=== PATIENT | female | born 1990 | race Caucasian/White ===

== ENCOUNTER 2017-03-04 21:01 | Emergency (ER) | payer MEDICARE ==
[2017-03-04] MEDS ORDERED: Vistaril 50 MG/ML IM ONE ×2 (21:40→21:42)
[2017-03-04] MEDS ORDERED: TYLENOL 325 MG PO ONE (21:40)
[2017-03-04] MEDS ORDERED: TYLENOL 325 MG ONE (21:42)
--- NOTE | 2017-03-04 21:44 | ERPHSYRPT ---
- History of Present Illness Time Seen by Provider: 03/04/17 21:10 Source: patient Patient Subjective Stated Complaint: pt states this afternoon she began to have a headache, reports she has bad anxiety and thought it was related to that. states that her headache increased tonight and she also had shoulder pain and a relative checked her BP and found it to be 200/100. Triage Nursing Assessment: pt is aox3, ambulatory to cot with no difficulties, pupils perrl, radial pulses strong and equal, resps are easy and non labored, cap refill < 3 secs. Physician History: CC: headache and high blood pressure Hx: 26 y/o patient with hx of HTN on diovan, anxiety and schizophrenia and multi personalities. She has had some headache today. She noted her BP was very elevated so a family member checked it and told her to come to the hospital. No N/T/W. No chest/abd/back pain. No fever or chills. No injury. Timing/Duration: today Severity: mild Allergies/Adverse Reactions: Penicillins Allergy (Verified 03/04/17 21:15) Home Medications: Alprazolam 0.25 mg [xanAX 0.25 MG] 0.25 mg PO TID 03/04/17 [History] Duloxetine HCl 30 mg [Cymbalta 30 MG Capsule] 90 mg PO DAILY 03/04/17 [ History] Paliperidone [Invega] 12 mg PO DAILY 03/04/17 [History] Prazosin HCl 2 mg PO HS 03/04/17 [History] Valsartan/Hydrochlorothiazide [Diovan Hct 160-12.5 mg Tab] 1 each PO DAILY 03/04 [History] Hx Tetanus, Diphtheria Vaccination/Date Given: No Hx Influenza Vaccination/Date Given: No Hx Pneumococcal Vaccination/Date Given: No Immunizations Up to Date: Yes - Review of Systems Constitutional: No Fever, No Chills Eyes: No Vision Changes Ears, Nose, & Throat: No Symptoms Respiratory: No Cough, No Dyspnea Cardiac: No Chest Pain Abdominal/Gastrointestinal: No Abdominal Pain, No Nausea, No Vomiting, No Diarrhea Musculoskeletal: No Back Pain, No Neck Pain, No Fall, No Injury Skin: No Rash Neurological: Headache, No Focal Weakness, No Parasthesia All Other Systems: Reviewed and Negative - Past Medical History Pertinent Past Medical History: Yes Neurological History: Migraines Cardiac History: Hypertension Respiratory History: Asthma Endocrine Medical History: No Pertinent History Musculoskeletal History: No Pertinent History Psycho-Social History: Anxiety, Depression Other Medical History: multiple personality disorder, schizophrenia - Past Surgical History Past Surgical History: Yes Musculoskeletal: Other Other Surgical History: biopsy of shoulder tumor-benign - Social History Smoking Status: Current every day smoker How long have you smoked: 13 Drug Use: none Patient Lives Alone: No (here with family) - Female History Hx Last Menstrual Period: 02/25/17 - Nursing Vital Signs Nursing Vital Signs: Initial Vital Signs Temperature 97.3 F 03/04/17 21:06 Pulse Rate 90 03/04/17 21:06 Respiratory Rate 20 03/04/17 21:06 Blood Pressure 134/82 03/04/17 21:06 O2 Sat by Pulse Oximetry 98 03/04/17 21:06 Pain Scale Pain Intensity 0 - Physical Exam General Appearance: alert Eye Exam: PERRL/EOMI Ears, Nose, Throat Exam: normal ENT inspection, moist mucous membranes Neck Exam: normal inspection, non-tender, supple Respiratory Exam: normal breath sounds, lungs clear Cardiovascular Exam: regular rate/rhythm Gastrointestinal/Abdomen Exam: soft, No tenderness, No distention Back Exam: normal inspection, normal range of motion Extremity Exam: normal inspection, normal range of motion Neurologic Exam: alert, oriented x 3, cooperative, sensation nml, No motor deficits Skin Exam: warm, dry, No rash SpO2 Interpretation: normal SpO2: 98 Oxygen Delivery: Room Air - Course Nursing assessment & vital signs reviewed: Yes Ordered Tests: Active Orders 24 hr Category Date Time Status Clean Catch Urine Specimen STAT Care 03/04/17 21:34 Active HCG,QUALITATIVE URINE Stat Lab 03/04/17 21:30 Completed UA W/RFX UR CULTURE Stat Lab 03/04/17 21:30 Completed Urine Triage Profile Stat Lab 03/04/17 21:30 Completed Medication Summary Discontinued Medications Generic Name Dose Route Start Last Admin Trade Name Freq PRN Reason Stop Dose Admin Acetaminophen 650 mg 03/04/17 21:40 03/04/17 21:47 Tylenol 325 Mg PO 03/04/17 21:41 650 mg STAT ONE Administration Acetaminophen Confirm 03/04/17 21:42 Tylenol 325 Mg Administered 03/04/17 21:43 Dose 650 mg .ROUTE .STK-MED ONE Hydroxyzine HCl 50 mg 03/04/17 21:40 03/04/17 21:47 Vistaril 50 Mg/Ml IM 03/04/17 21:41 50 mg STAT ONE Administration Hydroxyzine HCl Confirm 03/04/17 21:42 Vistaril 50 Mg/Ml Administered 03/04/17 21:43 Dose 50 mg IM .STK-MED ONE Lab/Rad Data: Laboratory Results 03/04/17 03/04/17 03/04/17 Range/Units 21:30 21:30 21:30 Ur Collection Type CLEAN CATCH Urine Color YELLOW (YELLOW) Urine Appearance CLEAR (CLEAR) Urine pH 6.0 (5-6) Ur Specific [place] 1.010 (1.005-1.025) Urine Protein NEGATIVE (Negative) Urine Ketones NEGATIVE (NEGATIVE) Urine Blood NEGATIVE (0-5) Ted/ul Urine Nitrite NEGATIVE (NEGATIVE) Urine Bilirubin NEGATIVE (NEGATIVE) Urine Urobilinogen NORMAL (0-1) mg/dL Ur Leukocyte Esterase NEGATIVE (NEGATIVE) Urine Culture Reflexed NO (NO) Urine Glucose NEGATIVE (NEGATIVE) mg/dL Urine HCG, Qual NEGATIVE (Negative) Urine Opiates Level NEG. (NEGATIVE) Ur Methadone NEG. (NEGATIVE) Urine Barbiturates NEG. (NEGATIVE) Ur Phencyclidine (PCP) NEG. (NEGATIVE) Urine Amphetamine NEG. (NEGATIVE) U Benzodiazepine Level NEG. (NEGATIVE) Urine Cocaine NEG. (NEGATIVE) Urine Marijuana (THC) POS. (NEGATIVE) Specimen Received 03/04/172129 - Progress Progress Note: 03/04/17 22:27 She is stable. All electric heat and no CO or gas at home. She was given vistrail and APAP. Labs reviewed. Will release to follow up with KATHY Gruber. BP here has been excellent. Counseled pt/family regarding: lab results, diagnosis, need for follow-up - Departure Time of Disposition: 22:27 Departure Disposition: Home Clinical Impression: Headache, Hypertension Condition: Stable Critical Care Time: No Referrals: GISELE GRUBER [Primary Care Provider] - Instructions: Headache, High Blood Pressure Additional Instructions: No driving tonite and stay with family. Return for problems or concerns. Follow up with KATHY Gruber next week.
[2017-03-04 22:09] LABS: Collection Type CLEAN CATCH
[2017-03-04 22:10] LABS: ADD URINE CULTURE? NO (NO); Bilirubin NEGATIVE (NEGATIVE); Blood NEGATIVE Ery/ul (0-5); COMPLETE URINE MICROSCOPIC? NO; Glucose NEGATIVE (NEGATIVE); Leukocyte Esterase NEGATIVE (NEGATIVE)
[2017-03-04 22:35] VITALS: BP 132/75; PULSE 84; O2SAT 97
== END 2017-03-04 22:35 | disposition home or self-care (01) ==
LOC: ED 21:01
DX: R51 Headache (principal); I10 Essential (primary) hypertension
CPT/HCPCS: 80307; 81002; 84703; 96372; 99283; J3410; A9270-GY

== ENCOUNTER 2018-12-12 22:04 | Emergency (ER) | payer MEDICARE ==
--- NOTE | 2018-12-12 22:18 | ERPHSYRPT ---
- History of Present Illness Time Seen by Provider: 12/12/18 22:18 Source: patient Exam Limitations: no limitations Physician History: 28 y/o obese white female presents with right lower back pain and sciatica shooting down right buttock and back of right leg. no acute injury. Timing/Duration: day(s) (2), worse Severity: moderate Modifying Factors: Improves With: movement (worsens) Associated Symptoms: No nausea, No vomiting, No abdominal pain, No shortness of breath, No chest pain Allergies/Adverse Reactions: Penicillins Allergy (Verified 12/12/18 22:21) Home Medications: Alprazolam 0.25 mg [xanAX 0.25 MG] 0.25 mg PO TID 03/04/17 [History] Duloxetine HCl 30 mg [Cymbalta 30 MG Capsule] 90 mg PO DAILY 03/04/17 [ History] Paliperidone [Invega] 12 mg PO DAILY 03/04/17 [History] Prazosin HCl 2 mg PO HS 03/04/17 [History] Valsartan [Diovan] 160 mg PO DAILY 12/12/18 [History] Hx Tetanus, Diphtheria Vaccination/Date Given: No Hx Influenza Vaccination/Date Given: No Hx Pneumococcal Vaccination/Date Given: No - Review of Systems Constitutional: No Symptoms Eyes: No Symptoms Ears, Nose, & Throat: No Symptoms Respiratory: No Symptoms Cardiac: No Symptoms Abdominal/Gastrointestinal: No Symptoms Genitourinary Symptoms: No Symptoms Musculoskeletal: Back Pain, No Injury Skin: No Symptoms Neurological: No Symptoms Psychological: No Symptoms Endocrine: No Symptoms Hematologic/Lymphatic: No Symptoms Immunological/Allergic: No Symptoms All Other Systems: Reviewed and Negative - Past Medical History Pertinent Past Medical History: Yes Neurological History: Migraines Cardiac History: Hypertension Respiratory History: Asthma Endocrine Medical History: No Pertinent History Musculoskeletal History: No Pertinent History Psycho-Social History: Anxiety, Depression Other Medical History: multiple personality disorder, schizophrenia - Past Surgical History Past Surgical History: Yes Musculoskeletal: Other Other Surgical History: biopsy of shoulder tumor-benign - Social History Smoking Status: Current every day smoker How long have you smoked: 13 Drug Use: none Patient Lives Alone: No (here with family) - Nursing Vital Signs Nursing Vital Signs: Initial Vital Signs Temperature 98.0 F 12/12/18 22:10 Pulse Rate 96 H 12/12/18 22:10 Respiratory Rate 20 12/12/18 22:10 Blood Pressure 150/93 12/12/18 22:10 O2 Sat by Pulse Oximetry 97 12/12/18 22:10 Pain Scale Pain Intensity [Lower Back] 10 Pain Intensity 10 - Physical Exam General Appearance: no apparent distress, alert, anxiety Eye Exam: PERRL/EOMI, eyes nml inspection Ears, Nose, Throat Exam: normal ENT inspection, moist mucous membranes Neck Exam: normal inspection, non-tender, supple, full range of motion Respiratory Exam: normal breath sounds, lungs clear, airway intact, No chest tenderness, No respiratory distress Cardiovascular Exam: regular rate/rhythm, normal heart sounds, normal peripheral pulses Gastrointestinal/Abdomen Exam: soft, normal bowel sounds, No tenderness Pelvic Exam: not done Rectal Exam: not done Extremity Exam: normal inspection, normal range of motion, pelvis stable Neurologic Exam: alert, oriented x 3, 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, 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 Skin Exam: normal color, warm, dry Lymphatic Exam: No adenopathy SpO2 Interpretation: normal O2 Delivery: Room Air - Course Nursing assessment & vital signs reviewed: Yes Ordered Tests: Medication Summary Generic Name Dose Route Start Last Admin Trade Name Freq PRN Reason Stop Dose Admin Cyclobenzaprine HCl 10 mg 12/12/18 22:27 Cyclobenzaprine 10 Mg PO 12/12/18 22:28 STAT ONE Oxycodone/Acetaminophen 1 tab 12/12/18 22:27 Percocet Tablet 5/325mg PO 12/12/18 22:28 STAT STA Prednisone 20 mg 12/13/18 22:27 Deltasone 20 Mg PO 12/13/18 22:28 STAT ONE - Progress Progress: unchanged Counseled pt/family regarding: diagnosis, need for follow-up - Departure Departure Disposition: Home Clinical Impression: Sciatica Condition: Stable Critical Care Time: No Referrals: GISELE MEI [Primary Care Provider] - Additional Instructions: follow up with primary doctor for further management Prescriptions: Carisoprodol 350 mg [Soma 350 mg] 350 mg PO Q8H PRN PRN #10 tablet PRN Reason: Muscle Spasms Prednisone 10 mg [Deltasone 10 mg] 10 mg PO TID #12 tablet
[2018-12-12] MEDS ORDERED: Cyclobenzaprine 10 MG PO ONE (22:27)
[2018-12-12] MEDS ORDERED: PERCOCET TABLET 5/325MG PO STA (22:27)
[2018-12-12] MEDS ORDERED: PERCOCET TABLET 5/325MG ONE (22:35)
[2018-12-12] MEDS ORDERED: Cyclobenzaprine 10 MG ONE (22:36)
[2018-12-12] MEDS ORDERED: DELTASONE 20 MG ONE (22:36)
[2018-12-12 22:52] VITALS: BP 148/87; PULSE 94; O2SAT 98
[2018-12-13] MEDS ORDERED: DELTASONE 20 MG PO ONE (22:27)
== END 2018-12-12 22:50 | disposition home or self-care (01) ==
LOC: ED 22:04
DX: M54.31 Sciatica, right side (principal)
CPT/HCPCS: 99283; A9270-GY

== ENCOUNTER 2020-09-22 23:52 | Emergency (ER) | payer MEDICARE ==
[2020-09-23] MEDS ORDERED: NORCO 5/325 MG PO ONE (00:08)
[2020-09-23] MEDS ORDERED: NORCO 5/325 MG ONE (00:17)
--- NOTE | 2020-09-23 00:36 | ERPHSYRPT ---
- History of Present Illness Time Seen by Provider: 09/22/20 23:54 Source: patient Exam Limitations: no limitations Patient Subjective Stated Complaint: Patient states she was chasing a toddler and tripped over rocking horse. Patient states she lost consciousness for unkno wn amount of time. States she has a torn meniscus since february 2020 and thinks she tore it again. States nose has been bleeding for 2 hours and that R side of face is numb. Triage Nursing Assessment: Patient presents to ER. Patient is ambulatory but limping d/t injured knee. Patients nose is actively bleeding and has laceration on R side nose, bruising on L side of face. Physician History: 30 years old female presented in the ER with chief complaint of fall with injury around left orbit, left side of nose with epistaxis and left hip. Patient reports she tripped over something while chasing a toddler and hit her self against the edge of a chair with a positive loss of consciousness for 1 to 2- minute. She woke up with bleeding from left nose moderate amount, continuous until prior to arrival in the ER. She is having progressively increasing swelling around left forehead/orbit with feeling of numbness in that area and mild headache. Is complaining of dull aching to sharp pain in the nose which is more with palpation. No difficulty movements of eyeballs or visual disturbance. Denies any neck pain. She is complaining of left hip pain does have history of torn meniscus left knee but since fall she is having difficulty ambulation but was able to walk in the ER. No back pain. Up-to-date with tetanus. Occurred: last week, hours ago (2) Head Injury Location: frontal Method of Injury: fell Loss of Consciousness: prolonged (minutes) Associated Symptoms: headaches Allergies/Adverse Reactions: Penicillins Allergy (Verified 09/23/20 00:22) Home Medications: ALPRAZolam 0.25 MG [xanAX 0.25 MG] 0.25 mg PO TID 03/04/17 [History] Duloxetine HCl 30 mg [Cymbalta 30 MG Capsule] 90 mg PO DAILY 03/04/17 [History] Paliperidone [Invega] 12 mg PO DAILY 03/04/17 [History] Prazosin HCl 2 mg PO HS 03/04/17 [History] Valsartan [Diovan] 160 mg PO DAILY 12/12/18 [History] Hx Tetanus, Diphtheria Vaccination/Date Given: No Hx Influenza Vaccination/Date Given: No Hx Pneumococcal Vaccination/Date Given: No Travel Risk - International Travel Have you traveled outside of the country in past 3 weeks: No - Coronavirus Screening Are you exhibiting any of the following symptoms?: No Close contact with a COVID-19 positive Pt in past 14-21 Days: No - Vaccine Status Have you recieved a Covid-19 vaccination: No - Review of Systems Constitutional: No Symptoms Eyes: No Symptoms Ears, Nose, & Throat: Nose Pain, Nose Congestion, Epistaxis Respiratory: No Symptoms Cardiac: No Symptoms Abdominal/Gastrointestinal: No Symptoms Genitourinary Symptoms: No Symptoms Musculoskeletal: No Symptoms Skin: Rash, Skin Lesions Neurological: Headache Psychological: No Symptoms Endocrine: No Symptoms Hematologic/Lymphatic: No Symptoms Immunological/Allergic: No Symptoms - Past Medical History Pertinent Past Medical History: Yes Neurological History: Migraines Cardiac History: Hypertension Respiratory History: Asthma Endocrine Medical History: No Pertinent History Musculoskeletal History: No Pertinent History Psycho-Social History: Anxiety, Depression Other Medical History: multiple personality disorder, schizophrenia - Past Surgical History Past Surgical History: Yes Musculoskeletal: Other Other Surgical History: biopsy of shoulder tumor-benign - Social History Smoking Status: Current every day smoker How long have you smoked: 13 Exposure to second hand smoke: Yes Drug Use: none Patient Lives Alone: No (here with family) - Female History Hx Last Menstrual Period: 08/25/20 Hx Now: (unkn) - Nursing Vital Signs Nursing Vital Signs: Initial Vital Signs Temperature 97 F 09/22/20 23:58 Pulse Rate 100 H 09/22/20 23:58 Blood Pressure 127/67 09/22/20 23:58 Pain Scale Pain Intensity 9 - Ovando Coma Score Best Eye Response (Mariano): (4) open spontaneously Best Verbal Response (Mariano): (5) oriented Best Motor Response (Ovando): (6) obeys commands Mariano Total: 15 - Physical Exam General Appearance: no apparent distress, alert, anxiety Head Injury: contusions, raccoon eyes, swelling (Left periorbital area with hematoma and tenderness. No crepitus.), No active bleeding Eye Exam: bilateral eye: normal inspection, PERRL, EOMI ENT Exam: airway nml, clotted nasal blood (Left nares), other (Abrasion around left side of nose, around left orbit.) Neck Exam: supple, trachea midline, full range of motion, normal alignment, normal inspection Cardiovascular/Respiratory Exam: chest non-tender, normal breath sounds, regular rate/rhythm Gastrointestinal/Abdominal Exam: soft, non tender, no distention, no mass Back Exam: normal inspection, normal range of motion, CVA tenderness, vertebral tenderness, point tenderness (Left hip) Extremity Exam: normal inspection, pelvis stable, limited range of motion (Left hip) Mental Status Exam: alert, oriented x 3, 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 Exam: normal hearing, normal speech, PERRL Coordination/Gait Exam: normal finger to nose Motor/Sensory Exam: no motor deficit, no sensory deficit, no pronator drift, negative Babinski's sign Skin Exam: normal color SpO2 Interpretation: normal O2 Delivery: Room Air Ordered Tests: Active Orders 24 hr Category Date Time Status CERVICAL SPINE WO CONTRAST [CT] Stat Exams 09/23/20 01:18 Taken FACIAL BONES WO CONTRAST [CT] Stat Exams 09/23/20 01:14 Taken HEAD WITHOUT CONTRAST [CT] Stat Exams 09/23/20 01:10 Taken HIP UNI (2V) INCL PEL IF DONE Stat Exams 09/23/20 01:34 Taken HCG,QUALITATIVE URINE Stat Lab 09/23/20 00:49 Completed Medication Summary Discontinued Medications Generic Name Dose Route Start Last Admin Trade Name Flex PRN Reason Stop Dose Admin Hydrocodone Bitart/Acetaminophen 2 tab 09/23/20 00:08 09/23/20 00:18 [place] 5/325 Mg PO 09/23/20 00:09 2 tab STAT ONE Administration Hydrocodone Bitart/Acetaminophen Confirm 09/23/20 00:17 [place] 5/325 Mg Administered 09/23/20 00:18 Dose 2 tab .ROUTE .STK-MED ONE Lab/Rad Data: Laboratory Results 09/23/20 Range/Units 00:49 Urine HCG, Qual NEGATIVE (Negative) - Progress Progress: improved, pain not gone completely, re-examined Progress Note: 09/23/20 02:03 30 years old is evaluated for fall with injury around left orbit and left side of nose with epistaxis. Patient nasal bleed is improved on presentation. I have made her blow her nose and there is a small lesion, recommended nasal tampon/Rhino Rocket but patient refused as she is not bleeding. She understands the risk. She does have a left nasal fracture but no orbital floor fracture. No skull fracture or intracranial findings. She is able to ambulate but does have pain in the right hip, I did not appreciate any obvious fracture dislocation. I believe patient has hip contusion. Recommended Tylenol ibuprofen and outpatient follow-up. Discussed signs symptoms of worsening needing return to ER which she seems understanding. Discussed in detail about concussion and patient does have some adult to she is going to stay with for next 24 to 48 hours. Counseled pt/family regarding: lab results, diagnosis, need for follow-up, rad results, smoking cessation - Departure Departure Disposition: Home Clinical Impression: Epistaxis Concussion Qualifiers: Encounter type: initial encounter Loss of consciousness presence/duration: with LOC of 30 min or less Qualified Code(s): S06.0X1A - Concussion with loss of consciousness of 30 minutes or less, initial encounter Facial contusion Qualifiers: Encounter type: initial encounter Qualified Code(s): S00.83XA - Contusion of other part of head, initial encounter Nasal bone fracture Qualifiers: Encounter type: initial encounter Fracture type: closed Qualified Code(s): S02.2XXA - Fracture of nasal bones, initial encounter for closed fracture Contusion of hip, left Qualifiers: Encounter type: initial encounter Qualified Code(s): S70.02XA - Contusion of left hip, initial encounter Condition: Stable Critical Care Time: No Referrals: MARÍA PAINTER MD [Primary Care Provider] - (2 days for reevaluation.) AARON OHARA [NON-STAFF PHY W/O PRIVILEGES] - (1-2 days for reevaluation.) ORTHO - BENNY KOHLI NP [NON-STAFF PHY W/O PRIVILEGES] - Follow Up with PCP/3 days Instructions: Contusion (DC), Nose Fracture (DC), Nosebleeds (DC) Additional Instructions: Use Tylenol/ibuprofen alternate for pain control. Follow-up with primary care physician for reevaluation. If left hip pain does not improve, follow-up with Ortho clinic for reevaluation. For nasal fracture follow-up with ENT for reevaluation. If has bleeding again, apply firm pressure for 5 to 7 minutes and return to ER for worsening. Stay with a responsible person for next 48 hours with frequent neuro checks and return to ER for altered mental status/confusion/intractable vomiting/numbness tingling or focal weakness. Prescriptions: Clindamycin HCl 150 mg [Cleocin 150 mg Capsule] 2 cap PO QID #56 capsule
[2020-09-23] MEDS ORDERED: CLEOCIN 150 MG CAPSULE PO ONE (02:09)
[2020-09-23] MEDS ORDERED: CLEOCIN 150 MG CAPSULE ONE (02:20)
[2020-09-23 03:11] VITALS: BP 130/75; PULSE 75; O2SAT 98
--- NOTE | 2020-09-23 09:12 | XRAY ---
Indication: Left head/facial injury following fall. Multiple contiguous axial images obtained through the head without contrast. Comparison: None Normal appearing brain parenchyma, ventricles, and bony calvarium. Visualized paranasal sinuses and mastoid air cells are clear. CT facial bones and CT cervical spine reported separately. Impression: Normal CT head without contrast exam. Comment: Preliminary interpretation was made by [facility]. No critical discrepancy.
--- NOTE | 2020-09-23 09:12 | XRAY ---
Indication: Pain following fall. Comparison: None 2 view left hip demonstrates small spurring of greater tuberosity. No other bony, articular, or soft tissue abnormalities. Comment: Preliminary interpretation was made by [facility]. No critical discrepancy.
--- NOTE | 2020-09-23 09:18 | XRAY ---
Indication: Left head/facial injury following fall. Multiple contiguous axial images obtained through the facial bones. Sagittal and coronal reformatted images obtained. Comparison: None Right sided dental amalgam produces beam artifact. Bridge of nasal bone demonstrates nondisplaced/nondepressed fracture with overlying soft tissue swelling/laceration and subcutaneous emphysema. No other fracture, suspicious bony lesions, or radiopaque foreign body. Orbits including roof, diaz, and floors are intact. Paranasal sinuses and nasal passages are clear. Moderate nasal septal deviation to the right. Mild degenerative changes left TMJ. Prominent palatine tonsils narrows the oropharynx. There are multiple centimeter/subcentimeter cervical and submandibular lymph nodes bilaterally presumed reactive. Remaining visualized noncontrasted soft tissues are unremarkable. CT head and CT cervical spine reported separately. Impression: 1. Nasal bone fracture with overlying soft tissue swelling/laceration. 2. Incidental nasal septal deviation, mild left TMJ DJD, prominent palatine tonsils, and multiple nonpathologic cervical lymph nodes. Comment: Preliminary interpretation was made by [facility]. No critical discrepancy.
--- NOTE | 2020-09-23 09:20 | XRAY ---
Indication: Left head/facial injury following fall. Multiple contiguous axial images obtained through the cervical spine. Sagittal and coronal reformatted images obtained. Comparison: None Axial images negative for acute fracture, suspicious bony lesions, or spinal canal stenosis. Sagittal and coronal reformatted images demonstrates lordotic straightening, positional versus paraspinal spasm. Vertebral body heights/disc spaces maintained. No acute compression fracture, subluxation, or jumped facet. Normal appearing craniocervical junction. Visualized noncontrasted soft tissues including apices are unremarkable. CT head and CT facial bones reported separately. Impression: 1. Cervical lordotic straightening, positional versus paraspinal spasm. 2. Negative acute fracture/subluxation. Comment: Preliminary interpretation was made by [facility]. No critical discrepancy.
== END 2020-09-23 03:33 | disposition home or self-care (01) ==
LOC: ED 23:52
DX: S06.0X1A Concussion with loss of consciousness of 30 minutes or less, initial encounter (principal); S00.83XA Contusion of other part of head, initial encounter; S02.2XXA Fracture of nasal bones, initial encounter for closed fracture; S70.02XA Contusion of left hip, initial encounter; W01.198A Fall on same level from slipping, tripping and stumbling with subsequent striking against other object, initial encounter; Y93.02 Activity, running; Y92.89 Other specified places as the place of occurrence of the external cause; I10 Essential (primary) hypertension
CPT/HCPCS: 70450; 70486; 72125; 73502; 84703; 99284; A9270-GY

== ENCOUNTER 2020-12-14 16:28 | Emergency (ER) | payer MEDICARE ==
[2020-12-14 17:02] VITALS: BP 158/74
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
[2020-12-14] MEDS ORDERED: TORAdol 30 mg Injection IM ONE (18:07)
[2020-12-14] MEDS ORDERED: TORAdol 30 mg Injection ONE (18:22)
[2020-12-14 18:42] VITALS: PULSE 81
[2020-12-14 22:22] VITALS: O2SAT 95
--- NOTE | 2020-12-15 08:44 | XRAY ---
Indication: Pain following injury. Comparison: January 01, 2020. 3 view left knee limited due to suboptimal positioning. Stable small suprapatella spur and tiny posterior fabella. No other bony, articular, or soft tissue abnormalities.
== END 2020-12-14 18:42 | disposition home or self-care (01) ==
LOC: ED 16:28
DX: S83.92XA Sprain of unspecified site of left knee, initial encounter (principal); Y04.0XXA Assault by unarmed brawl or fight, initial encounter; Y93.89 Activity, other specified; Y92.89 Other specified places as the place of occurrence of the external cause
CPT/HCPCS: 73562; 96372; 99283; J1885

== ENCOUNTER 2021-05-14 16:25 | Emergency (ER) | payer MEDICARE ==
[2021-05-14 16:36] VITALS: BP 178/101; PULSE 100; O2SAT 96
[2021-05-14] MEDS ORDERED: Ativan 2 MG/1 ML VIAL IM ONE (16:55)
[2021-05-14] MEDS ORDERED: Ativan 2 MG/1 ML VIAL ONE (16:56)
--- NOTE | 2021-05-14 17:03 | ERPHSYRPT ---
- History of Present Illness Time Seen by Provider: 05/14/21 16:50 Source: patient Exam Limitations: no limitations Patient Subjective Stated Complaint: pt here for a panic attack that stated 4 days ago, she states she has panic attacks often and is trying to get disablity for them. she states she is stressed because she was denied disablity Triage Nursing Assessment: pt alert, walked in, resp easy, face mask in place, tearful at times, skin w/d/p. 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 she has apt 05/19 at [facility] Physician History: This is a 31-year-old obese white female has a history of anxiety, depression, multiple personality disorder and schizophrenia. Patient has been on disability because of her panic attacks. Patient states that 4 days ago another panic attack started because of the difficulty patient is having in recertifying her disability. Patient is on Cymbalta, BuSpar, Prozac and Invega. She is also on 3 times a day Xanax but only took Xanax one time today. Patient states that she does not have a headache. She has no chest pain. She is not short of breath. She has no abdominal pain. She has no nausea vomiting or diarrhea. She is shaky and tearful. Patient states that she is not suicidal and she is not homicidal. Timing/Duration: day(s) (4) Severity of Symptoms-Max: moderate Severity of Symptoms-Current: moderate Context related to: legal problems (Having difficulty in recertifying her disability because of her mental health issues) Suicidal thoughts: other (None) Associated Symptoms: anxiety, depressed Previous symptoms: same symptoms as today Allergies/Adverse Reactions: Penicillins Allergy (Verified 05/14/21 16:36) Home Medications: ALPRAZolam 0.25 MG [xanAX 0.25 MG] 1 mg PO TID PRN PRN 03/04/17 [History] Duloxetine HCl 30 mg [Cymbalta 30 MG Capsule] 60 mg PO DAILY 03/04/17 [History] Paliperidone [Invega] 12 mg PO DAILY 03/04/17 [History] Prazosin HCl 2 mg PO HS 03/04/17 [History] Valsartan [Diovan] 160 mg PO DAILY 12/12/18 [History] Buspirone HCl [Buspar] 10 mg PO DAILY 12/14/20 [History] Fluoxetine HCl [Prozac] 20 mg PO UD 12/14/20 [History] Furosemide [Lasix] 10 mg PO DAILY 12/14/20 [History] Hx Tetanus, Diphtheria Vaccination/Date Given: No Hx Influenza Vaccination/Date Given: Yes Hx Pneumococcal Vaccination/Date Given: No Immunizations Up to Date: Yes Travel Risk - International Travel Have you traveled outside of the country in past 3 weeks: No - Coronavirus Screening Are you exhibiting any of the following symptoms?: No Close contact with a COVID-19 positive Pt in past 14-21 Days: No - Vaccine Status Have you recieved a Covid-19 vaccination: Yes 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: [employer] - Past Medical History Pertinent Past Medical History: Yes Neurological History: Migraines Cardiac History: Hypertension Respiratory History: Asthma Endocrine Medical History: No Pertinent History Musculoskeletal History: No Pertinent History Psycho-Social History: Anxiety, Depression, Panic Disorder Other Medical History: multiple personality disorder, schizophrenia - Past Surgical History Past Surgical History: Yes Musculoskeletal: Other Other Surgical History: biopsy of shoulder tumor-benign - Social History Smoking Status: Current every day smoker How long have you smoked: 13 Exposure to second hand smoke: Yes Drug Use: none Patient Lives Alone: No Significant Family History: no pertinent family hx - Female History Hx Last Menstrual Period: dec Hx Now: No - Review of Systems Constitutional: No Symptoms Eyes: No Symptoms Ears, Nose, & Throat: No Symptoms Respiratory: No Symptoms Cardiac: No Symptoms Abdominal/Gastrointestinal: No Symptoms Genitourinary Symptoms: No Symptoms Musculoskeletal: No Symptoms Neurological: No Symptoms Psychological: Anxiety, Depression, No Suicidal Ideations, No Homicidal Ideations, No Hallucinations Endocrine: No Symptoms Hematologic/Lymphatic: No Symptoms Immunological/Allergic: No Symptoms All Other Systems: Reviewed and Negative - Nursing Vital Signs Nursing Vital Signs: Initial Vital Signs Temperature 97.7 F 05/14/21 16:31 Pulse Rate 100 H 05/14/21 16:31 Respiratory Rate 18 05/14/21 16:31 Blood Pressure 178/101 05/14/21 16:31 O2 Sat by Pulse Oximetry 96 05/14/21 16:31 Pain Scale Pain Intensity 0 - Physical Exam General Appearance: no apparent distress, alert, anxiety, obese Eyes, Ears, Nose, Throat Exam: normal ENT inspection, moist mucous membranes Neck Exam: normal inspection, non-tender, supple, full range of motion Respiratory Exam: normal breath sounds, lungs clear, airway intact, No chest tenderness, No respiratory distress Cardiovascular Exam: regular rate/rhythm, normal heart sounds, normal peripheral pulses Gastrointestinal/Abdominal Exam: soft, normal bowel sounds, No tenderness Extremities Exam: normal inspection, normal range of motion, No evidence of injury Current Suicidality: denies suicide plan Neurological Exam: alert, 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, 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, oriented x 3, anxious, depressed affect Appearance: appropriate appearance, appropriate insight, no memory impairment Behavior/Eye Contact/Speech: alert & cooperative, cooperative, good eye contact, normal speech Skin Exam: normal color, warm, dry SpO2 Interpretation: normal SpO2: 96 O2 Delivery: Room Air - Course Nursing assessment & vital signs reviewed: Yes Ordered Tests: Active Orders 24 hr Category Date Time Status CBC W DIFF Stat Lab 05/14/21 17:05 Completed CMP Stat Lab 05/14/21 17:05 Completed HCG,QUALITATIVE URINE Stat Lab 05/14/21 17:16 Completed MAG [MAGNESIUM] Stat Lab 05/14/21 17:05 Completed UA W/RFX UR CULTURE Stat Lab 05/14/21 17:16 Received Medication Summary Discontinued Medications Generic Name Dose Route Start Last Admin Trade Name Nahumq PRN Reason Stop Dose Admin Lorazepam 2 mg 05/14/21 16:55 05/14/21 16:58 Lorazepam 2 Mg/1 Ml 2 Mg Vial IM 05/14/21 16:56 2 mg STAT ONE Administration Lorazepam Confirm 05/14/21 16:56 Lorazepam 2 Mg/1 Ml 2 Mg Vial Administered 05/14/21 16:57 Dose 2 mg .ROUTE .STK-MED ONE Lab/Rad Data: Laboratory Result Diagrams 05/14/21 17:05 05/14/21 17:05 Laboratory Results 05/14/21 05/14/21 05/14/21 Range/Units 17:16 17:16 17:05 WBC (4.0-10.5) K/mm3 RBC (4.1-5.4) M/mm3 Hgb (12.0-16.0) gm/dl Hct (35-47) % MCV (78-100) fl MCH (26-32) pg MCHC (32-36) g/dl RDW (11.5-14.0) % Plt Count (150-450) K/mm3 MPV (7.5-11.0) fl Gran % (36.0-66.0) % Eos # (Auto) (0-0.5) Absolute Lymphs (auto) (1.0-4.6) Absolute Monos (auto) (0.0-1.3) Lymphocytes % (24.0-44.0) % Monocytes % (0.0-12.0) % Eosinophils % (0.00-5.0) % Basophils % (0.0-0.4) % Absolute Granulocytes (1.4-6.9) Basophils # (0-0.4) Sodium 138 (137-145) mmol/L Potassium 3.5 (3.5-5.1) mmol/L Chloride 104 (98-107) mmol/L Carbon Dioxide 28 (22-30) mmol/L Anion Gap 9.1 (5-15) MEQ/L BUN 7 (7-17) mg/dL Creatinine 0.73 (0.52-1.04) mg/dL Estimated GFR > 60.0 ML/MIN Glucose 100 (74-106) mg/dL Calcium 8.8 (8.4-10.2) mg/dL Magnesium 1.7 (1.6-2.3) mg/dL Total Bilirubin 0.70 (0.2-1.3) mg/dL AST 18 (14-36) U/L ALT 15 (0-35) U/L Alkaline Phosphatase 99 (38-126) U/L Serum Total Protein 6.7 (6.3-8.2) g/dL Albumin 4.1 (3.5-5.0) g/dL Urine Color JESUS (YELLOW) Urine Appearance CLOUDY (CLEAR) Urine pH 5.0 (5-6) Ur Specific [place] 1.030 (1.005-1.025) Urine Protein 30 (Negative) Urine Ketones TRACE (NEGATIVE) Urine Blood NEGATIVE (0-5) Ted/ul Urine Nitrite NEGATIVE (NEGATIVE) Urine Bilirubin SMALL (NEGATIVE) Urine Urobilinogen 2 (0-1) mg/dL Ur Leukocyte Esterase TRACE (NEGATIVE) Urine WBC (Auto) 3-5 (0-5) /HPF Urine RBC (Auto) 0-2 (0-2) /HPF U Epithel Cells (Auto) FEW (FEW) /HPF Urine Bacteria (Auto) FEW (NEGATIVE) /HPF Urine Mucus (Auto) MANY (NEGATIVE) /HPF Urine Culture Reflexed YES (NO) Urine Glucose NEGATIVE (NEGATIVE) mg/dL Urine HCG, Qual NEGATIVE (Negative) 05/14/21 Range/Units 17:05 WBC 8.8 (4.0-10.5) K/mm3 RBC 4.77 (4.1-5.4) M/mm3 Hgb 14.0 (12.0-16.0) gm/dl Hct 43.0 (35-47) % MCV 90.1 (78-100) fl MCH 29.4 (26-32) pg MCHC 32.6 (32-36) g/dl RDW 13.1 (11.5-14.0) % Plt Count 251 (150-450) K/mm3 MPV 10.4 (7.5-11.0) fl Gran % 72.5 H (36.0-66.0) % Eos # (Auto) 0.08 (0-0.5) Absolute Lymphs (auto) 1.76 (1.0-4.6) Absolute Monos (auto) 0.57 (0.0-1.3) Lymphocytes % 19.9 L (24.0-44.0) % Monocytes % 6.5 (0.0-12.0) % Eosinophils % 0.9 (0.00-5.0) % Basophils % 0.2 (0.0-0.4) % Absolute Granulocytes 6.40 (1.4-6.9) Basophils # 0.02 (0-0.4) Sodium (137-145) mmol/L Potassium (3.5-5.1) mmol/L Chloride (98-107) mmol/L Carbon Dioxide (22-30) mmol/L Anion Gap (5-15) MEQ/L BUN (7-17) mg/dL Creatinine (0.52-1.04) mg/dL Estimated GFR ML/MIN Glucose (74-106) mg/dL Calcium (8.4-10.2) mg/dL Magnesium (1.6-2.3) mg/dL Total Bilirubin (0.2-1.3) mg/dL AST (14-36) U/L ALT (0-35) U/L Alkaline Phosphatase (38-126) U/L Serum Total Protein (6.3-8.2) g/dL Albumin (3.5-5.0) g/dL Urine Color (YELLOW) Urine Appearance (CLEAR) Urine pH (5-6) Ur Specific [place] (1.005-1.025) Urine Protein (Negative) Urine Ketones (NEGATIVE) Urine Blood (0-5) Ted/ul Urine Nitrite (NEGATIVE) Urine Bilirubin (NEGATIVE) Urine Urobilinogen (0-1) mg/dL Ur Leukocyte Esterase (NEGATIVE) Urine WBC (Auto) (0-5) /HPF Urine RBC (Auto) (0-2) /HPF U Epithel Cells (Auto) (FEW) /HPF Urine Bacteria (Auto) (NEGATIVE) /HPF Urine Mucus (Auto) (NEGATIVE) /HPF Urine Culture Reflexed (NO) Urine Glucose (NEGATIVE) mg/dL Urine HCG, Qual (Negative) - Departure Departure Disposition: Home Clinical Impression: Panic attack, UTI (urinary tract infection) Condition: Stable Critical Care Time: No Referrals: MARÍA PAINTER MD [Primary Care Provider] - Follow up/PCP as directed Additional Instructions: Drink plenty of fluids. Make sure you take your Xanax 3 times a day as prescribed as well as all your other medications. Fill your antibiotic and take as instructed. Follow-up with your primary care doctor on Monday, May 17, 2021 Prescriptions: Smz/Tmp Ds Tablet [Bactrim Ds Tablet] 1 udtab PO BID #14 tablet
[2021-05-14 17:16] LABS: Basophil (Absolute #) 0.02 (0-0.4); Eosinophil % 0.9 % (0.00-5.0); Eosinophil (Absolute #) 0.08 (0-0.5); Lymphocyte (Absolute #) 1.76 (1.0-4.6); Lymphocytes % 19.9 % (24.0-44.0); Mean Cell Volume 90.1 fl (78-100); Mean Corpuscular Hemoglobin 29.4 pg (26-32); Mean Corpuscular Hgb Concent. 32.6 g/dl (32-36); Mean Platelet Volume 10.4 fl (7.5-11.0); Monocyte (Absolute #) 0.57 (0.0-1.3); Monocytes % 6.5 % (0.0-12.0); Neutrophil % 72.5 % (36.0-66.0); Platelet Count 251 K/mm3 (150-450); Red Blood Count 4.77 M/mm3 (4.1-5.4); Red Cell Distribution Width 13.1 % (11.5-14.0); White Blood Count 8.8 K/mm3 (4.0-10.5)
[2021-05-14 17:26] LABS: ALBUMIN 4.1 g/dL (3.5-5.0); ALKALINE PHOSPHATASE 99 U/L (38-126); ANION GAP 9.1 MEQ/L (5-15); BLOOD UREA NITROGEN 7 mg/dL (7-17); CHLORIDE 104 mmol/L (98-107); Calcium 8.8 mg/dL (8.4-10.2); Carbon Dioxide 28 mmol/L (22-30); Creatinine 1 0.73 mg/dL (0.52-1.04); EST GLOMERULAR FILTRATION RATE > 60.0 ML/MIN; Glucose 100 mg/dL (74-106); MAGNESIUM 1.7 mg/dL (1.6-2.3); Potassium 3.5 mmol/L (3.5-5.1); SGOT/AST 18 U/L (14-36); SGPT/ALT 15 U/L (0-35); SODIUM 138 mmol/L (137-145); Total Protein 6.7 g/dL (6.3-8.2)
[2021-05-14 17:45] LABS: Appearance CLOUDY (CLEAR); Bacteria FEW /HPF (NEGATIVE); Bilirubin SMALL (NEGATIVE); Blood NEGATIVE Ery/ul (0-5); Epithelial Cells FEW /HPF (FEW); Glucose NEGATIVE (NEGATIVE); Ketones TRACE (NEGATIVE); Leukocyte Esterase TRACE (NEGATIVE); Mucus MANY /HPF (NEGATIVE); Nitrite NEGATIVE (NEGATIVE); Protein,Urine Dip 30 (Negative); RBC 0-2 /HPF (0-2); Urobilinogen 2 mg/dL (0-1)
[2021-05-14] MEDS ORDERED: BACTRIM DS TABLET PO STA (17:48)
[2021-05-14] MEDS ORDERED: BACTRIM DS TABLET PO ONE (17:51)
== END 2021-05-14 18:26 | disposition home or self-care (01) ==
LOC: ED 16:25
DX: F41.0 Panic disorder [episodic paroxysmal anxiety] (principal); N39.0 Urinary tract infection, site not specified; F32.A Depression, unspecified; F44.81 Dissociative identity disorder; F20.9 Schizophrenia, unspecified; Z59.7 Insufficient social insurance and welfare support; I10 Essential (primary) hypertension; Z72.0 Tobacco use; Z79.899 Other long term (current) drug therapy
CPT/HCPCS: 36415; 80053; 81001; 83735; 84703; 85025; 87086; 96372; 99284; J2060; A9270-GY

== ENCOUNTER 2023-06-11 21:45 | Emergency (ER) | payer MEDICARE ==
--- NOTE | 2023-06-11 21:47 | ERPHSYRPT ---
- History of Present Illness Time Seen by Provider: 06/11/23 21:46 Source: patient Exam Limitations: no limitations Physician History: This is a morbidly obese 33-year-old white female patient of Dr. Painter who has recurrent sciatica and presents with 3-day history of worsening sciatica bilaterally. She did not suffer any acute fall or injury. Patient has a history of hypertension and depression. Patient took naproxen this morning. Patient is allergic to penicillin. Patient denies chest pain. Patient denies shortness of breath. Patient has no abdominal pain symptoms. Timing/Duration: day(s) (3), worse Method of Injury: other (No injury) Quality: sharp Back Pain Location: lumbar spine Back Pain Radiation: buttocks Severity of Pain-Max: moderate Associated Symptoms: lower back pain, muscle spasms, No urinary incontinence, No loss of bowel control, No numbness in legs/feet, No sensory/motor loss, No tingling in legs/feet Previous symptoms: same symptoms as today, no recent treatment Allergies/Adverse Reactions: Penicillins Allergy (Verified 06/11/23 21:52) Home Medications: ALPRAZolam 0.25 MG [xanAX 0.25 MG] 1 mg PO TID PRN PRN 03/04/17 [History] Duloxetine HCl 30 mg [Cymbalta 30 MG Capsule] 60 mg PO DAILY 03/04/17 [History] Paliperidone [Invega] 12 mg PO DAILY 03/04/17 [History] Prazosin HCl 2 mg PO HS 03/04/17 [History] Buspirone HCl [Buspar] 10 mg PO BID 12/14/20 [History] Fluoxetine HCl [Prozac] 20 mg PO UD 12/14/20 [History] Furosemide [Lasix] 10 mg PO DAILY 12/14/20 [History] Gabapentin 100 mg PO BID 06/11/23 [History] Potassium Chloride [Klor-Con 8] 8 meq PO BID 06/11/23 [History] Hx Tetanus, Diphtheria Vaccination/Date Given: No Hx Influenza Vaccination/Date Given: Yes Hx Pneumococcal Vaccination/Date Given: No Travel Risk - International Travel Have you traveled outside of the country in past 3 weeks: No - Coronavirus Screening Are you exhibiting any of the following symptoms?: No Close contact with a COVID-19 positive Pt in past 14-21 Days: No - Vaccine Status Have you recieved a Covid-19 vaccination: Yes [employer]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: [employer] - Review of Systems Constitutional: No Symptoms Eyes: No Symptoms Ears, Nose, & Throat: No Symptoms Respiratory: No Symptoms Cardiac: No Symptoms Abdominal/Gastrointestinal: No Symptoms Genitourinary Symptoms: No Symptoms Musculoskeletal: Back Pain, No Fall, No Injury Skin: No Symptoms Neurological: No Symptoms Psychological: No Symptoms Endocrine: No Symptoms Hematologic/Lymphatic: No Symptoms Immunological/Allergic: No Symptoms All Other Systems: Reviewed and Negative - Past Medical History Pertinent Past Medical History: Yes Neurological History: Migraines Cardiac History: Hypertension Respiratory History: Asthma Endocrine Medical History: No Pertinent History Musculoskeletal History: No Pertinent History Psycho-Social History: Anxiety, Depression, Panic Disorder Other Medical History: multiple personality disorder, schizophrenia - Past Surgical History Past Surgical History: Yes Musculoskeletal: Other Other Surgical History: biopsy of shoulder tumor-benign - Social History Smoking Status: Current every day smoker How long have you smoked: 13 Exposure to second hand smoke: Yes Drug Use: none Patient Lives Alone: No Significant Family History: no pertinent family hx - Nursing Vital Signs Nursing Vital Signs: Initial Vital Signs Temperature 97.4 F 06/11/23 22:00 Pulse Rate 86 06/11/23 22:00 Respiratory Rate 18 06/11/23 22:00 Blood Pressure 141/98 06/11/23 22:00 O2 Sat by Pulse Oximetry 95 06/11/23 22:00 Pain Scale Pain Intensity 10 - Physical Exam General Appearance: no apparent distress, alert, anxiety Eye Exam: PERRL/EOMI, eyes nml inspection Ears, Nose, Throat Exam: normal ENT inspection, moist mucous membranes Neck Exam: normal inspection, non-tender, supple, full range of motion Respiratory Exam: airway intact, No chest tenderness, No respiratory distress Gastrointestinal Exam: tenderness Pelvic Exam: not done Rectal Exam: not done Back Exam: normal inspection, normal range of motion, muscle spasm (Bilateral lumbar levels), No CVA tenderness, No vertebral tenderness Extremity Exam: normal inspection, normal range of motion, pelvis stable Neurologic Exam: alert, oriented x 3, 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 Patient walked with a cane to her room in the emergency department) Skin Exam: normal color, warm, dry Lymphatic Exam: No adenopathy SpO2 Interpretation: normal O2 Delivery: Room Air - Course Nursing assessment & vital signs reviewed: Yes Ordered Tests: Medication Summary Discontinued Medications Generic Name Dose Route Start Last Admin Trade Name Flex PRN Reason Stop Dose Admin Methylprednisolone Sodium 0 mg 06/11/23 22:30 06/11/23 22:40 Succinate 125 mg/ Sterile IM 06/11/23 22:31 125 mg Water 2 ml STAT ONE Administration Methylprednisolone Sodium Succinate Confirm 06/11/23 22:36 Methylprednis Sod Succ 125 Mg/2 Ml Vial Administered 06/11/23 22:37 Dose 125 mg .ROUTE .STK-MED ONE Orphenadrine Citrate 60 mg 06/11/23 22:30 06/11/23 22:39 Orphenadrine Citrate 60 Mg/2 Ml Vial IM 06/11/23 22:31 60 mg STAT ONE Administration Orphenadrine Citrate Confirm 06/11/23 22:36 Orphenadrine Citrate 60 Mg/2 Ml Vial Administered 06/11/23 22:37 Dose 60 mg .ROUTE .STK-MED ONE Oxycodone/Acetaminophen 1 tab 06/11/23 22:29 06/11/23 22:38 Oxycodone Hcl/Apap 5 Mg/325 Mg Tablet PO 06/11/23 22:30 1 tab STAT STA Administration Oxycodone/Acetaminophen Confirm 06/11/23 22:35 Oxycodone Hcl/Apap 5 Mg/325 Mg Tablet Administered 06/11/23 22:36 Dose 1 tab .ROUTE .STK-MED ONE Sterile Water Confirm 06/11/23 22:35 Water For Injection,Sterile 10 Ml Vial Administered 06/11/23 22:36 Dose 10 ml IJ .STK-MED ONE - Progress Progress: improved, pain not gone completely, re-examined Progress Note: 06/11/23 22:50 This patient's medical issue is 1 of low complexity. The level of complexity in the workup performed is based on review of the patient's past medical history, review the patient's medication list, review the patient drug allergy list and physical findings on examination. The workup in this patient does not require radiographic or laboratory studies. Counseled pt/family regarding: diagnosis, need for follow-up Medical Desision Making - Diagnostic Testing Diagnostic test were ordered, analyzed, and reviewed by me: No - Risk of complications The pt has a mod risk of morbidity or mortality based on: Need for prescription drug management - Departure Departure Disposition: Home Clinical Impression: Sciatica Condition: Stable Critical Care Time: No Referrals: MARÍA PAINTER MD [Primary Care Provider] - Follow up/PCP as directed Additional Instructions: Take your medication as prescribed. Follow-up with your primary care provider by phone, tomorrow, 06/12/2023, to make arrangements for follow-up appointment for further evaluation and management in the next 3 to 5 days. Prescriptions: Prednisone 10 mg [Deltasone 10 mg] 10 mg PO TID #12 tablet Orphenadrine Citrate 100 mg [Norflex 100 MG Tablet] 100 mg PO BID #10 tab
[2023-06-11 22:01] VITALS: TEMP 97.4
[2023-06-11] MEDS ORDERED: PERCOCET TABLET 5/325MG PO STA ×2 (22:29→22:53)
[2023-06-11] MEDS ORDERED: Norflex 60 MG/2 ML IM ONE (22:30)
[2023-06-11] MEDS ORDERED: solu-MEDROL 125 MG, Sterile H2O 10 ml 2 ML IM ONE ×2 (22:30)
[2023-06-11] MEDS ORDERED: Sterile H2O 10 ml IJ ONE (22:35)
[2023-06-11] MEDS ORDERED: PERCOCET TABLET 5/325MG ONE (22:35)
[2023-06-11] MEDS ORDERED: Norflex 60 MG/2 ML ONE (22:36)
[2023-06-11] MEDS ORDERED: solu-MEDROL ONE (22:36)
[2023-06-11 23:03] VITALS: BP 136/93; PULSE 99; RESP 17; O2SAT 94
== END 2023-06-11 23:27 | disposition home or self-care (01) ==
LOC: ED 21:45
DX: M54.32 Sciatica, left side (principal); M54.31 Sciatica, right side; I10 Essential (primary) hypertension; Z79.52 Long term (current) use of systemic steroids; Z79.899 Other long term (current) drug therapy; Z72.0 Tobacco use
CPT/HCPCS: 96372; 99283; J2360; J2930; A9270-GY

== ENCOUNTER 2023-07-26 21:06 | Emergency (ER) | payer MEDICARE ==
[2023-07-26 21:27] VITALS: BP 144/89; PULSE 107; RESP 18; TEMP 97.6; O2SAT 94
--- NOTE | 2023-07-26 22:16 | ERPHSYRPT ---
- History of Present Illness Time Seen by Provider: 07/26/23 21:30 Source: patient Exam Limitations: no limitations Patient Subjective Stated Complaint: pt c/o bilateral sciatic pain since yesteday, pt states she lifted up a trash bag and has hurt ever since Triage Nursing Assessment: pt ambulatory to bed by self with personal cane, pt alert and oriented x3, skin pwd, pt c/o bilateral sciatic pain since yesteray but worsening since 4 pm, pt took a muscle relaxer this am with no relief Physician History: Patient a 33-year-old female with a history of chronic recurrent sciatica pain presents to our ED for a dose of Decadron for her usual sciatica pain. Patient has had an MRI of her spine regarding this pain. Patient was advised that she needs surgery to her back. Per patient her orthopedist plans on repairing a left knee meniscus before the back could be repaired. In the meantime patient requires intermittent Decadron for her back pain. No fever no recent back procedure no change in bowel bladder function no saddle anesthesia. No lower extremity weakness. No trauma. Symptoms are typical of her usual back pain. Patient denies urinary symptomology. She voices no other complaints or concerns at this time. Portions of this note were created with voice recognition technology. There may be grammatical, spelling, punctuation or sound alike errors Timing/Duration: yesterday Severity: moderate Modifying Factors: Improves With: movement Associated Symptoms: denies symptoms Allergies/Adverse Reactions: Penicillins Allergy (Verified 06/11/23 21:52) Home Medications: ALPRAZolam 0.25 MG [xanAX 0.25 MG] 1 mg PO TID PRN PRN 03/04/17 [History] Duloxetine HCl 30 mg [Cymbalta 30 MG Capsule] 60 mg PO DAILY 03/04/17 [History] Paliperidone [Invega] 12 mg PO DAILY 03/04/17 [History] Prazosin HCl 2 mg PO HS 03/04/17 [History] Buspirone HCl [Buspar] 10 mg PO BID 12/14/20 [History] Fluoxetine HCl [Prozac] 20 mg PO UD 12/14/20 [History] Furosemide [Lasix] 10 mg PO DAILY 12/14/20 [History] Gabapentin 100 mg PO BID 06/11/23 [History] Potassium Chloride [Klor-Con 8] 8 meq PO BID 06/11/23 [History] Hx Tetanus, Diphtheria Vaccination/Date Given: Yes Hx Influenza Vaccination/Date Given: Yes Hx Pneumococcal Vaccination/Date Given: No Immunizations Up to Date: No Travel Risk - International Travel Have you traveled outside of the country in past 3 weeks: No - Emerging Infectious Disease Are you exhibiting symptoms associated with any current EIDs: No - Review of Systems Constitutional: No Symptoms, No Fever, No Chills Eyes: No Symptoms Ears, Nose, & Throat: No Symptoms Respiratory: No Symptoms, No Cough, No Dyspnea Cardiac: No Symptoms, No Chest Pain, No Edema, No Syncope Abdominal/Gastrointestinal: No Symptoms, No Abdominal Pain, No Nausea, No Vomiting, No Diarrhea Genitourinary Symptoms: No Symptoms, No Dysuria Musculoskeletal: No Symptoms, No Back Pain, No Neck Pain Skin: No Symptoms, No Rash Neurological: No Symptoms, No Dizziness, No Focal Weakness, No Sensory Changes Psychological: No Symptoms Endocrine: No Symptoms Hematologic/Lymphatic: No Symptoms Immunological/Allergic: No Symptoms All Other Systems: Reviewed and Negative - Past Medical History Pertinent Past Medical History: Yes Neurological History: Migraines ENT History: No Pertinent History Cardiac History: Hypertension Respiratory History: Asthma Endocrine Medical History: No Pertinent History Musculoskeletal History: No Pertinent History GI Medical History: No Pertinent History History: No Pertinent History Psycho-Social History: Anxiety, Depression, Panic Disorder Female Reproductive Disorders: No Pertinent History Other Medical History: multiple personality disorder, schizophrenia - Past Surgical History Past Surgical History: Yes Neuro Surgical History: No Pertinent History Cardiac: No Pertinent History Respiratory: No Pertinent History Gastrointestinal: No Pertinent History Genitourinary: No Pertinent History Musculoskeletal: Other Female Surgical History: No Pertinent History Other Surgical History: biopsy of shoulder tumor-benign Significant Family History: no pertinent family hx - Female History Hx Last Menstrual Period: 06/22/23 Hx Now: No - Social History Smoking Status: Current every day smoker How long have you smoked: 13 Exposure to second hand smoke: Yes Drug Use: none Patient Lives Alone: No - Nursing Vital Signs Nursing Vital Signs: Initial Vital Signs Temperature 97.6 F 07/26/23 21:17 Pulse Rate 107 H 07/26/23 21:17 Respiratory Rate 18 07/26/23 21:17 Blood Pressure 144/89 07/26/23 21:17 O2 Sat by Pulse Oximetry 94 L 07/26/23 21:17 Pain Scale Pain Intensity [Lower Back] 10 Pain Intensity 10 - Physical Exam General Appearance: no apparent distress, alert Eye Exam: PERRL/EOMI, eyes nml inspection Ears, Nose, Throat Exam: normal ENT inspection, moist mucous membranes Neck Exam: normal inspection, supple, full range of motion Respiratory Exam: normal breath sounds, lungs clear, airway intact, No respirat ory distress Cardiovascular Exam: regular rate/rhythm, normal heart sounds, normal peripheral pulses Gastrointestinal/Abdomen Exam: soft, No tenderness, No mass Back Exam: normal inspection, normal range of motion, No CVA tenderness, No vertebral tenderness Extremity Exam: normal inspection, normal range of motion, pelvis stable Neurologic Exam: alert, oriented x 3, cooperative, normal mood/affect, nml cerebellar function, nml station & gait, sensation nml, No motor deficits Skin Exam: normal color, warm, dry, No rash Lymphatic Exam: No adenopathy SpO2 Interpretation: normal SpO2: 94 O2 Delivery: Room Air - Course Nursing assessment & vital signs reviewed: Yes Ordered Tests: Medication Summary Discontinued Medications Generic Name Dose Route Start Last Admin Trade Name Freq PRN Reason Stop Dose Admin Dexamethasone Sodium Phosphate 8 mg 07/26/23 21:53 Dexamethasone Sod Phosphate 10 Mg/Ml IM 07/26/23 21:54 STAT ONE Ketorolac Tromethamine 60 mg 07/26/23 22:08 Ketorolac Tromethamine 30 Mg/Ml Inj IM 07/26/23 22:09 STAT ONE - Progress Progress: improved Progress Note: 33-year-old female with chronic recurrent sciatica pain treated with steroids and pain medication. Patient presents to our ED for steroids. No urinary complaints. Patient has no other symptomology. Physical exam otherwise unremarkable. Patient received Decadron and Toradol. Patient states she is ready for discharge. She agrees to follow-up with her primary care doctor within 48 hours for reevaluation. Portions of this note were created with voice recognition technology. There may be grammatical, spelling, punctuation or sound alike errors Complexity of problem addressed is moderate acute complicated No critical care time Complex of data reviewed and analyzed is none. Diagnosis made based on history and physical examination. No specialized testing ordered. Risk of complication and or risk of morbidity/mortality of patient management is low Vital stable. Time spent to discharge patient is approximately 20 minutes. Plan of care established for shared decision making. No social determinants of health present impede follow-up. Portions of this note were created with voice recognition technology. There may be grammatical, spelling, punctuation or sound alike errors 07/26/23 22:14 Counseled pt/family regarding: diagnosis, need for follow-up - Departure Departure Disposition: Home Clinical Impression: Sciatica, Acute exacerbation of chronic low back pain Condition: Stable Critical Care Time: No Referrals: MARÍA PAINTER MD [Primary Care Provider] - Follow up/PCP as directed Additional Instructions: Discharge/Care Plan AKIL HECTOR was seen on 07/26/23 in the Emergency Room. The patient was counseled regarding Diagnosis,Lab results, Imaging studies, need for follow up and when to return to the Emergency Room. Prescriptions given: Discharge Note I have spoken with the patient and/or caregivers. I have explained the patient's condition, diagnosis and treatment plan based on the information available to me at this time. I have answered the patient's and/or caregiver's questions and addressed any concerns. The patient and/or caregivers have as good understanding of the patient's diagnosis, condition and treatment plan as can be expected at this point. The vital signs have been stable. The patient's condition is stable and appropriate for discharge from the emergency department. The patient will pursue further outpatient evaluation with the primary care physician or other designated or consulting physician as outlined in the discharge instructions. The patient and/or caregivers are agreeable to this plan of care and follow-up instructions have been explained in detail. The patient and/or caregivers have received these instruction. The patient/and or caregivers are aware that any significant change in condition or worsening of symptoms should prompt an immediate return to this or the closest emergency department or call 911.
[2023-07-26] MEDS ORDERED: TORAdol 30 mg Injection ONE (22:17)
[2023-07-26] MEDS ORDERED: DECADRON 10MG INJ. ONE (22:17)
[2023-07-26] MEDS: DECADRON 10MG INJ. IM ONE (22:20)
[2023-07-26] MEDS: TORAdol 30 mg Injection IM ONE (22:21)
== END 2023-07-26 23:01 | disposition home or self-care (01) ==
LOC: ED 21:06
DX: G89.29 Other chronic pain (principal); M54.50 Low back pain, unspecified; M54.30 Sciatica, unspecified side; I10 Essential (primary) hypertension; Z79.899 Other long term (current) drug therapy; Z72.0 Tobacco use
CPT/HCPCS: 96372; 99283; J1100; J1885

== ENCOUNTER 2024-03-16 15:37 | Emergency (ER) | payer MEDICARE ==
[2024-03-16 15:47] VITALS: TEMP 97; O2SAT 95
--- NOTE | 2024-03-16 16:41 | ERPHSYRPT ---
- History of Present Illness Time Seen by Provider: 03/16/24 16:36 Source: patient, family Exam Limitations: no limitations Patient Subjective Stated Complaint: pt here for pain to right foot, she was trying to go without cane and her left leg gave out and she fell Triage Nursing Assessment: pt alert,flat effect, arrived per wc, skin w/d/p. resp easy, right foot, with tenderness, , Physician History: pt here for pain to right foot, she was trying to go without cane and her left leg gave out and she fell Method of Injury: fell Occurred: just prior to arrival Severity of Pain-Max: moderate Severity of Pain-Current: moderate Lower Extremities Pain: foot: right Associated Symptoms: unable to bear weight Allergies/Adverse Reactions: Penicillins Allergy (Verified 03/16/24 15:47) Home Medications: ALPRAZolam 0.25 MG [xanAX 0.25 MG] 1 mg PO TID PRN PRN 03/04/17 [History] Duloxetine HCl 30 mg [Cymbalta 30 MG Capsule] 60 mg PO DAILY 03/04/17 [History] Paliperidone [Invega] 12 mg PO DAILY 03/04/17 [History] Prazosin HCl 2 mg PO HS 03/04/17 [History] Buspirone HCl [Buspar] 10 mg PO BID 12/14/20 [History] Fluoxetine HCl [Prozac] 20 mg PO UD 12/14/20 [History] Furosemide [Lasix] 10 mg PO DAILY 12/14/20 [History] Gabapentin 100 mg PO BID 06/11/23 [History] Potassium Chloride [Klor-Con 8] 8 meq PO BID 06/11/23 [History] Hx Tetanus, Diphtheria Vaccination/Date Given: Yes Hx Influenza Vaccination/Date Given: No Hx Pneumococcal Vaccination/Date Given: No Immunizations Up to Date: Yes Travel Risk - International Travel Have you traveled outside of the country in past 3 weeks: No - Emerging Infectious Disease Are you exhibiting symptoms associated with any current EIDs: No - Review of Systems Constitutional: No Symptoms Eyes: No Symptoms Ears, Nose, & Throat: No Symptoms Respiratory: No Symptoms Cardiac: No Symptoms Abdominal/Gastrointestinal: No Symptoms Genitourinary Symptoms: No Symptoms Musculoskeletal: Fall, Joint Swelling Skin: Other (echymosis right foot) Neurological: No Symptoms Psychological: No Symptoms Endocrine: No Symptoms Hematologic/Lymphatic: No Symptoms Immunological/Allergic: No Symptoms - Past Medical History Pertinent Past Medical History: Yes Neurological History: Migraines ENT History: No Pertinent History Cardiac History: Hypertension Respiratory History: Asthma Endocrine Medical History: No Pertinent History Musculoskeletal History: No Pertinent History GI Medical History: No Pertinent History History: No Pertinent History Psycho-Social History: Anxiety, Depression, Panic Disorder Female Reproductive Disorders: No Pertinent History Other Medical History: multiple personality disorder, schizophrenia - Past Surgical History Past Surgical History: Yes Neuro Surgical History: No Pertinent History Cardiac: No Pertinent History Respiratory: No Pertinent History Gastrointestinal: No Pertinent History Genitourinary: No Pertinent History Musculoskeletal: Other Female Surgical History: No Pertinent History Other Surgical History: biopsy of shoulder tumor-benign Significant Family History: no pertinent family hx - Female History Hx Last Menstrual Period: irreg Hx Now: No - Social History Smoking Status: Current every day smoker How long have you smoked: 13 Exposure to second hand smoke: Yes Drug Use: none Patient Lives Alone: No - Social Determinants of Health Will the patient participate in the screening: Yes Do you worry about a steady place to live?: No Do you have any problems with any of the following?: No known problems In the past 12 months,have you had to go without utilities?: No Transportation Issues: No Has anyone in your support network made you feel unsafe?: No Have you or anyone in your house had to go without enough: No - Nursing Vital Signs Nursing Vital Signs: Initial Vital Signs Temperature 97.0 F 03/16/24 15:46 Pulse Rate 87 03/16/24 15:46 Respiratory Rate 18 03/16/24 15:46 Blood Pressure 125/87 03/16/24 15:46 O2 Sat by Pulse Oximetry 95 03/16/24 15:46 Pain Scale Pain Intensity 4 - Physical Exam General Appearance: no apparent distress Eyes, Ears, Nose, Throat Exam: normal ENT inspection Neck Exam: normal inspection Cardiovascular/Respiratory Exam: chest non-tender Gastrointestinal/Abdominal Exam: non-tender Back Exam: normal inspection Hips Exam: bilateral: non-tender, normal inspection, normal range of motion, no evidence of injury Legs Exam: bilateral leg: non-tender, normal inspection, normal range of motion, no evidence of injury Knees Exam: bilateral knee: non-tender, normal inspection, normal range of motion, no evidence of injury Ankle Exam: bilateral ankle: non-tender, normal inspection, normal range of motion, no evidence of injury Foot Exam: right foot: bone tenderness, ecchymosis, limited range of motion, soft tissue tenderness, swelling, left foot: non-tender, normal inspection, normal range of motion, no evidence of injury DTR - Lower Extremities Exam: knee (R): 2+, knee (L): 2+, ankle (R): 2+, ankle (L): 2+ Neuro/Tendon Exam: normal sensation, normal motor functions, normal tendon functions Mental Status Exam: alert, oriented x 3 Skin Exam: normal color SpO2 Interpretation: normal SpO2: 95 O2 Delivery: Room Air Procedures - Splinting Time of Procedure: 17:13 Location of Splint: Right, Foot, Ankle, Lower Leg Type of Splint: Orthoglass Long Leg Splint Splint Applied By: ED Nurse Pre-Proc Neuro Vasc Exam: normal Post-Proc Neuro Vasc Exam: neurovascular intact - Course Nursing assessment & vital signs reviewed: Yes - Radiology Exams Foot X-ray Interpretation: Interpreted by me (lower end fibula fracture), Reviewed by me Ordered Tests: Active Orders 24 hr Category Date Time Status FOOT (MINIMUM 3 VIEWS) Stat Exams 03/16/24 15:57 Taken - Progress Progress: improved, pain not gone completely Counseled pt/family regarding: diagnosis, need for follow-up, rad results Medical Desision Making - Diagnostic Testing Diagnostic test were ordered, analyzed, and reviewed by me: Yes Radiological Interpretation: Interpreted by me, Reviewed by me - Departure Departure Disposition: Home Clinical Impression: Physeal fracture of lower end of fibula Qualifiers: Encounter type: initial encounter Fracture alignment: nondisplaced Laterality: right Qualified Code(s): S89.301A - Unspecified physeal fracture of lower end of right fibula, initial encounter for closed fracture Condition: Stable Critical Care Time: No Referrals: MARÍA PAINTER MD [Primary Care Provider] - [id number] Instructions: Foot Fracture (DC) Additional Instructions: Discharge/Care Plan AKIL HECTOR was seen on 03/16/24 in the Emergency Room. The patient was counseled regarding Diagnosis,Lab results, Imaging studies, need for follow up and when to return to the Emergency Room. Prescriptions given: Discharge Note I have spoken with the patient and/or caregivers. I have explained the patient's condition, diagnosis and treatment plan based on the information available to me at this time. I have answered the patient's and/or caregiver's questions and addressed any concerns. The patient and/or caregivers have as good understanding of the patient's diagnosis, condition and treatment plan as can be expected at this point. The vital signs have been stable. The patient's condition is stable and appropriate for discharge from the emergency department. The patient will pursue further outpatient evaluation with the primary care physician or other designated or consulting physician as outlined in the discharge instructions. The patient and/or caregivers are agreeable to this plan of care and follow-up instructions have been explained in detail. The patient and/or caregivers have received these instruction. The patient/and or caregivers are aware that any significant change in condition or worsening of symptoms should prompt an immediate return to this or the closest emergency department or call 911. AKIL HECTOR was seen on 03/16/24 n the Emergency Room. At that time you were treated for an emergent condition, during your visit Laboratory, Radiology and/or other procedures may have been ordered. It is very important that you follow-up with your Primary Care Physician MARÍA PAINTER within the next 24- 48 hours to review your Emergency Room visit and the final results of testing that was ordered. Some test results such as Urine Cultures, Blood Cultures, and other cultures if ordered will not be finalized for 24-48 hours. If you do not have a Primary Care Provider please call the medical records department at [phone] to obtain a copy of your results or you may sign into our patient portal to obtain these results by visiting us @ [email or web address] and completing the following steps: 1. Click on the Patient Portal link 2. Click the Patient Self Enrollment Link to complete the enrollment form and entering your 3. Once the enrollment form is completed you will receive an email with a temporary ID and password at the email address you provided. 4. Next choose a user name and password. Your user name must be at least 4 characters long and your password must be at least 4 characters long. 5. Choose a security question from the list and provide your answer to the question. If you already have signed into the Health Portal you may access your Health Care Information 28/11 by the following steps: 1. Login to our website @ [email or web address] 2. Enter your original user name and password. FAQS The [facility] Health Portal is an online tool that contains your Lab Results, Radiology Reports, Visit History, Discharge Instructions and Health Summary Lab and Radiology Results will not be available for 72 hours on the portal. The Portal is a secure site, passwords are encryted and URLs are re-written so they cannot be copied and pasted. You and authorized family members are the only ones who can access your Portal. Also there is a timeout feature that protects your information if you leave the Portal page open. If you have technical difficulty please use the Contact Us link on the page this will allow you to submit any questions you have regarding the Portal or you may contact the Medical Record Department at [phone]. Prescriptions: Naproxen 375 mg [Naprosyn 375 mg] 375 mg PO Q8H #30 tablet
[2024-03-16 17:06] VITALS: BP 111/81; PULSE 82; RESP 16
--- NOTE | 2024-03-16 20:44 | XRAY ---
Indication: Pain following fall. Comparison: None 3 nonweightbearing views right foot demonstrates osteopenia, mild midfoot degenerative changes, tiny heel spurs, and mild forefoot soft tissue swelling. No other bony, articular, or soft tissue abnormalities.
== END 2024-03-16 17:16 | disposition home or self-care (01) ==
LOC: ED 15:37
DX: S89.301A Unspecified physeal fracture of lower end of right fibula, initial encounter for closed fracture (principal); W19.XXXA Unspecified fall, initial encounter; M79.671 Pain in right foot; I10 Essential (primary) hypertension; Z79.899 Other long term (current) drug therapy; Z72.0 Tobacco use
CPT/HCPCS: 29515; 73630; 99283